=== PATIENT | female | born 1975 | race Hispanic/Latino ===

== ENCOUNTER 2018-02-26 16:53 | Emergency (ER) | payer OTHER, MEDICAID ==
[2018-02-26 16:54] VITALS: BMI 43.4
[2018-02-26 17:19] VITALS: BP 151/91; PULSE 75; RESP 16; TEMP 98; O2SAT 100
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
== END 2018-02-26 20:50 | disposition home or self-care (01) ==
LOC: H.ER 16:53
DX: S39.012A Strain of muscle, fascia and tendon of lower back, initial encounter (principal); S13.4XXA Sprain of ligaments of cervical spine, initial encounter; V43.62XA Car passenger injured in collision with other type car in traffic accident, initial encounter; Y92.410 Unspecified street and highway as the place of occurrence of the external cause; I10 Essential (primary) hypertension
CPT/HCPCS: 72040; 72100; 81025; 96374; 99284; J1885